=== PATIENT | female | born 1960 | race Caucasian/White ===

== ENCOUNTER 2018-06-22 20:46 | Emergency (ER) | payer OTHER ==
[~2018-06-22] VITALS: Ht 167.6 cm; Wt 102.1 kg
[~2018-06-22 20:46] MED LIST: ACETAMINOPHEN325 M1 PO; ADDERALL XR 2525 MG PO; ALBUTEROL2.5 MG/31; AVELOX 400 MG400 MG PO; CELEXA 20 MG TA20 M1; CIPROFLOXACIN500 M1 PO; CLEOCIN HCL300 MG PO; HYDROCODONE-AP1 EA10; HYDROXYCHLOROQ200 M1 PO; K-DUR 20 MEQ T20 MEQ PO; MUCINEX600 MG PO; PHENERGAN 25 MG25 M1 PO; PILOCARPINE HCL5 M1 PO; PREDNISONE 10 M10 M1; SINGULAIR 10 MG10 M1 PO; VICODIN 5-5001 EACH
[2018-06-22] MEDS ORDERED: NORCO 5-325 TA1 EACH PO (21:08)
[2018-06-22] MEDS ORDERED: CLEOCIN HCL150 MG PO (21:08)
[2018-06-22 22:00] VITALS: BP 158/97
== END 2018-06-22 22:00 | disposition home or self-care (01) ==
LOC: M.ERS 20:46
DX: K04.7 Periapical abscess without sinus (principal); F32.9 Major depressive disorder, single episode, unspecified; Z88.0 Allergy status to penicillin